=== PATIENT | female | born 1960 | race African-American/Black ===

== ENCOUNTER 2023-02-13 16:55 | Emergency (ER) | payer SELFPAY ==
[~2023-02-13] VITALS: Ht 152.4 cm; Wt 95.7 kg
[2023-02-13 17:00] VITALS: BP 165/109
--- NOTE | 2023-02-13 17:21 | ED Upper Extremity ---
General Chief Complaint: Upper Extremity Stated Complaint: RING STUCK ON R MIDDLE FINGER Source: patient Exam Limitations: no limitations History of Present Illness Date Seen by Provider: Feb 13, 2023 Time Seen by Provider: 17:15 Initial Comments This patient presented to the ER with pain and swelling of her right middle finger due to a ring tourniquet effect. She accidentally put her ring on the wrong finger and then fell asleep. She then awoke with her finger in this condition. Nursing staff promptly cut the ring off during triage, and it was removed by the time I examined the patient. Symptoms were already much improved. Allergies and Home Medications Allergies Coded Allergies: No Known Drug Allergies (Unverified , 02/13/23) Patient Home Medication List Home Medication List Reviewed: Yes Review of Systems Constitutional: no symptoms reported Musculoskeletal: see HPI Skin: see HPI Psychiatric/Neurological: No Symptoms Reported Physical Exam Vital Signs Vital Signs - First Documented 02/13/23 17:00 Temp 36.5 Pulse 66 Resp 18 B/P (MAP) 165/109 (127) Pulse Ox 100 O2 Delivery Room Air Capillary Refill : Height, Weight, BMI Height: '" Weight: lbs. oz. kg; BMI Method: General Appearance: WD/WN, mild distress Hand: Right (Minor swelling of the right middle finger with impression of ring at the proximal finger. There is normal capillary refill and sensation distally. Range of motion is normal.) Neurologic/Psychiatric: no motor/sensory deficits, alert, normal mood/affect, oriented x 3 Progress/Results/Core Measures Progress Progress Note : Progress Note Nursing staff removed the ring with ring cutters during the triage process. Symptoms had greatly improved by the time of my exam. Patient required no further treatments. See discharge instructions. Completion of documentation delayed due to unplanned EMR downtime. Departure Impression Primary Impression: Ring or other jewelry causing external constriction, initial encounter Disposition: HOME, SELF-CARE Condition: Improved Departure-Patient Inst. Decision time for Depature: 17:20 Patient Instructions: NO INSTRUCTIONS GIVEN Add. Discharge Instructions: Elevate your hand to the level of your heart as much as possible until swelling resolves. Return to care if you have persistent problems with pain or swelling or you develop any other concerns. All discharge instructions reviewed with patient and/or family. Voiced understanding. ANDRE GARCÍA MD Feb 13, 2023 17:21
== END 2023-02-13 17:29 | disposition home or self-care (01) ==
LOC: ER FS 16:57
DX: M79.89 Other specified soft tissue disorders (principal); W49.04XA Ring or other jewelry causing external constriction, initial encounter
CPT/HCPCS: 99281